=== PATIENT | female | born 1945 | race Caucasian/White ===

== ENCOUNTER 2022-09-15 20:27 | Emergency (ER) | payer MEDICARE, MEDICAID, SELFPAY ==
--- NOTE | 2022-09-15 20:27 | XRR_ITS ---
PROCEDURE INFORMATION: Exam: XR Abdomen Exam date and time: 09/15/2022 8:35 PM Age: 77 years old Clinical indication: Constipation TECHNIQUE: Imaging protocol: Radiologic exam of the abdomen. Views: Frontal supine view of the abdomen. 1 View. COMPARISON: No relevant prior studies available. FINDINGS: Gastrointestinal tract: Normal. No bowel dilation. Bones/joints: Lumbar spine levoscoliosis with a Dahl angle of 16 degrees measured between the superior endplate of L1 inferior endplate of L5. Multilevel severe disc space narrowing and productive degenerative endplate changes throughout the spine. XR/XR KUB [id number] IMPRESSION: 1. Lumbar spine levoscoliosis with a Dahl angle of 16 degrees measured between the superior endplate of L1 inferior endplate of L5. 2. Multilevel severe disc space narrowing and productive degenerative endplate changes throughout the spine.
[2022-09-15 20:44] VITALS: BP 116/63; PULSE 62; RESP 14; TEMP 36.7; O2SAT 97
--- NOTE | 2022-09-15 21:27 | CTR_ITS ---
PROCEDURE INFORMATION: Exam: CT Abdomen And Pelvis With Contrast Exam date and time: 09/15/2022 10:18 PM Age: 77 years old Clinical indication: Abdominal pain; Localized; Left lower quadrant (llq); Additional info: Llq abdominal pain, constipation TECHNIQUE: Imaging protocol: Computed tomography of the abdomen and pelvis with contrast. Radiation optimization: All CT scans at this facility use at least one of these dose optimization techniques: automated exposure control; mA and/or kV adjustment per patient size (includes targeted exams where dose is matched to clinical indication); or iterative reconstruction. Contrast material: OMNI 350; Contrast volume: 65 ml; Contrast route: INTRAVENOUS (IV); REPORTING DATA: Count of CT and Cardiac NM exams in prior 12 months: This patient has received 0 known CTs and 0 known cardiac nuclear medicine studies in the 12 months prior to the current study. COMPARISON: CR (ABDOMEN, ) 09/15/2022 8:35 PM RADIATION DOSE METRICS: Total DLP (mGy-cm): 495.64 FINDINGS: Lungs: Bibasilar atelectasis. Pleural spaces: Trace right pleural effusion. Heart: Cardiomegaly. Liver: Normal. No mass. Gallbladder and bile ducts: Gallbladder is somewhat distended, ultrasound could further evaluate this. Calcified biliary sludge. Pancreas: Normal. No ductal dilation. Spleen: Normal. No splenomegaly. Adrenal glands: Normal. No mass. Kidneys and ureters: Left kidney cyst, negative for follow-up advised. Stomach and bowel: Prominent fluid in the small bowel without dilation may reflect an enteritis in the appropriate clinical setting. [id number] constipation. Appendix: No evidence of appendicitis. Intraperitoneal space: Unremarkable. No free air. No significant fluid collection. Vasculature: Fusiform infrarenal abdominal aortic aneurysm measuring 2.7 cm in diameter. Lymph nodes: Unremarkable. No enlarged lymph nodes. Urinary bladder: Unremarkable as visualized. Reproductive: Unremarkable as visualized. Bones/joints: Degenerative changes throughout the spine. Soft tissues: Mild anasarca suspected. CT/CT abdomen pelvis w con* [id number] IMPRESSION: 1. Prominent fluid in the small bowel without dilation may reflect an enteritis in the appropriate clinical setting. 2. Fusiform infrarenal abdominal aortic aneurysm measuring 2.7 cm in diameter. 3. Left kidney cyst, negative for follow-up advised. 4. [id number] constipation. 5. Degenerative changes throughout the spine. 6. Trace right pleural effusion. 7. Bibasilar atelectasis. 8. Cardiomegaly. 9. Gallbladder is somewhat distended, ultrasound could further evaluate this. 10. Calcified biliary sludge. 11. Mild anasarca suspected. COMMENTS: Consistent with the [employer]'s Incidental Findings Committee white paper (J Am Denice Radiol 2018): Any incidental renal lesion less than 1 cm or classified as too small to characterize, or any incidental cystic renal lesion characterized as simple-appearing, is likely benign. No follow-up imaging is recommended for these lesions per consensus recommendations based on imaging criteria.
--- NOTE | 2022-09-15 21:29 | W.ED.ABDPA2 ---
Documented by User: ZEENAT Healy 09/16/22 02:16 HPI - Abdominal Pain General: Chief Complaint: Abdominal Pain Stated Complaint: CONSTIPATION Time Seen by Provider: 09/15/22 21:13 History of Present Illness: Patient is a 77-year-old female who comes to the ED with abdominal pain and constipation. 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 Patient is being taken care of by her sister and she lives with them currently. Sisters unsure of any other chronic health issues patient has and states that she very recently started taking care of patient. Over the past 2 to 3 days patient has been complaining of left lower quadrant abdominal pain. She also has went 4 days without having a bowel movement. She feels like she needs to have a bowel movement but is unable to push anything out. Patient was given stool softener for the past 2 days and started on MiraLAX today. Denies any fevers, nausea or vomiting and patient is able to keep p.o. food and fluids down. Location Director/sister does endorse a decreased appetite that is been going on now for the past several months. Denies any abdominal surgical history. Patient is on Eliquis and Plavix. Associated Symptoms: Reports constipation; Denies chills, diarrhea, dysuria, fever(s), hematochezia, hematuria, nausea and vomiting Review of Systems Const: Denies: fever(s), chills or fatigue Eyes: Denies: change in vision or eye discomfort ENMT: Denies: throat pain, odynophagia, nasal discharge or nasal congestion Card: Denies: chest pain, palpitations, edema, swelling of feet/ankles, dyspnea on exertion or orthopnea Resp: Denies: dyspnea, productive cough or non-productive cough GI: Reports: abdominal pain and constipation; Denies: nausea, vomiting, diarrhea or hematochezia : Denies: flank pain, dysuria or hematuria Musc: Denies: neck pain, back pain or extremity swelling Skin/Breast: Denies: rash or new lesions Neuro: Denies: headache(s), numbness in extremities or weakness in extremities [facility] ED PFSH: Medical History (Updated 09/24/22 @ 00:02 by CHINO Smith) Dementia Stroke Surgical History (Updated 09/15/22 @ 21:38 by ZEENAT Healy) No pertinent past surgical history Physical Exam Const: COMMON NORMALS: alert EXAM LIMITATIONS: altered mental status (Patient has dementia) HENMT: COMMON NORMALS: normocephalic HEAD & SCALP: normocephalic MOUTH: Normal oral and palatal mucosa present THROAT: posterior oropharynx normal and uvula midline Neck/C-Spine: COMMON NORMALS: supple GENERAL: Yes normal visual inspection Resp: COMMON NORMALS: normal respiratory effort, No retractions, No use of accessory muscles and clear to auscultation bilaterally AUSCULTATION: clear to auscultation bilaterally Cardio: COMMON NORMALS: regular rate, regular rhythm, S1 normal heart sound present, S2 normal heart sound present, No gallops present (Cardio), No clicks present (Cardio), No murmurs present (Cardio) and Peripheral pulses 2+ throughout RATE: regular rate RHYTHM: regular rhythm HEART SOUNDS: S1 normal heart sound present and S2 normal heart sound present PERIPHERAL PULSES: Peripheral pulses 2+ throughout GI: COMMON NORMALS: Normal to inspection, nondistended, normoactive bowel sounds present, Soft to palpation and no masses PALPATION: Yes Soft to palpation and Yes Tenderness to palpation present (GI) Details: LLQ OTHER: Patient has firm palpable mass in the left lower quadrant of abdomen. : COMMON NORMALS: Yes no CVA tenderness BLADDER/KIDNEY EXAM: Yes no CVA tenderness Back/Pelvis: COMMON NORMALS: no CVA tenderness Extremity: COMMON NORMALS: normal to inspection Neuro: SENSORIUM/ORIENTATION: Yes alert GAIT: Yes Normal gait present Skin: GENERAL SKIN EXAM: dry skin Course Reevaluation(s): Reevaluation #1: I went in to discuss CT findings with patient and patient's sister stated that within the last half an hour patient was complaining of some chest pain in the middle of her chest. She described as a tight pain in the middle of her chest. She states that the chest pain has resolved at this time and only lasted for few minutes. I told patient and patient's sister that we will do some further cardiac testing here in the ED for further evaluation. Time: 23:30 Vital Signs: Vital signs: Vital Signs Temperature 98.0 F 09/15/22 20:44 Pulse Rate 62 09/16/22 01:16 Respiratory Rate 16 09/16/22 01:16 Blood Pressure 132/58 09/16/22 01:16 Pulse Oximetry 95 09/16/22 01:16 Oxygen Delivery Me thod Room Air 09/16/22 00:00 MDM - Abdominal Pain Medical Decision Making Patient is a 77-year-old female who comes to the ED with abdominal pain and constipation. 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 Patient is being taken care of by her sister and she lives with them currently. Sisters unsure of any other chronic health issues patient has and states that she very recently started taking care of patient. Over the past 2 to 3 days patient has been complaining of left lower quadrant abdominal pain. She also has went 4 days without having a bowel movement. She feels like she needs to have a bowel movement but is unable to push anything out. Patient was given stool softener for the past 2 days and started on MiraLAX today. Denies any fevers, nausea or vomiting and patient is able to keep p.o. food and fluids down. Location Director/sister does endorse a decreased appetite that is been going on now for the past several months. Denies any abdominal surgical history. Patient is on Eliquis and Plavix. Vitals are stable. Patient has some mild left lower quadrant abdominal tenderness with also small palpable mass in the left lower quadrant of the abdomen. Rest of exam is benign. Hemoglobin 8.2 and creatinine was 1.2. Rest of CBC and CMP are unremarkable. UA was unremarkable. Patient developed a brief episode of chest pain while here in the ED that resolved after few minutes so EKG and troponins ordered. EKG showed no acute findings and troponins were negative. KUB showed no acute findings. CT of abdomen pelvis showed enteritis of the small bowel and also showed mild to moderate constipation. I discussed patient case with Dr. Oro and he agreed patient was stable for discharge home. She was diagnosed with constipation, abdominal pain, anemia and atypical chest pain. Patient's sister was told to have patient follow-up with her PCP within the next couple days to have her labs rechecked. She was instructed to continue giving patient a dose of MiraLAX daily for the next 3 days to help with constipation. Strict return to ED precautions given. Patient's sister understood and agreed with plan. Lab Data I reviewed the patient's lab results. 09/15/22 21:37 09/15/22 21:37 Labs/Radiology: Radiology Impressions KUB X-Ray 09/15/22 20:27 IMPRESSION: 1. Lumbar spine levoscoliosis with a Dahl angle of 16 degrees measured between the superior endplate of L1 inferior endplate of L5. 2. Multilevel severe disc space narrowing and productive degenerative endplate changes throughout the spine. Abdomen/Pelvis CT 09/15/22 21:27 IMPRESSION: 1. Prominent fluid in the small bowel without dilation may reflect an enteritis in the appropriate clinical setting. 2. Fusiform infrarenal abdominal aortic aneurysm measuring 2.7 cm in diameter. 3. Left kidney cyst, negative for follow-up advised. 4. Eyqe-qz-khiykoux constipation. 5. Degenerative changes throughout the spine. 6. Trace right pleural effusion. 7. Bibasilar atelectasis. 8. Cardiomegaly. 9. Gallbladder is somewhat distended, ultrasound could further evaluate this. 10. Calcified biliary sludge. 11. Mild anasarca suspected. COMMENTS: Consistent with the [employer]'s Incidental Findings Committee white paper (J Am Denice Radiol 2018): Any incidental renal lesion less than 1 cm or classified as too small to characterize, or any incidental cystic renal lesion characterized as simple-appearing, is likely benign. No follow-up imaging is recommended for these lesions per consensus recommendations based on imaging criteria. Laboratory Results WBC 6.9 10^3/uL (4.0-10.0) 09/15/22 21:37 RBC 3.23 10^6/uL (4.1-5.3) L 09/15/22 21:37 Hgb 8.2 g/dL (11.5-15.3) L 09/15/22 21:37 Hct 28.5 % (37.0-47.0) L 09/15/22 21:37 MCV 88.2 fl (81-99) 09/15/22 21:37 MCH 25.4 pg (28.0-34.0) L 09/15/22 21:37 MCHC 28.8 g/dL (30.0-36.0) L 09/15/22 21:37 RDW 18.6 % (12.1-15.1) H 09/15/22 21:37 Plt Count 192 10^3/cmm (130-400) 09/15/22 21:37 MPV 10.9 fL (7.4-10.4) H 09/15/22 21:37 Neut % (Auto) 71.3 % 09/15/22 21:37 Lymph % (Auto) 18.0 % 09/15/22 21:37 [place] % (Auto) 7.5 % 09/15/22 21:37 Eos % (Auto) 2.3 % 09/15/22 21:37 Baso % (Auto) 0.6 % 09/15/22 21:37 Neut # (Auto) 4.94 10^3/uL (1.8-7.7) 09/15/22 21:37 Lymph # (Auto) 1.3 10^3/uL (0.8-4.8) 09/15/22 21:37 [place] # (Auto) 0.5 10^3/uL (0.2-0.9) 09/15/22 21:37 Eos # (Auto) 0.2 10^3/uL (0.0-0.8) 09/15/22 21:37 Baso # (Auto) 0.0 10^3/uL (0.0-0.1) 09/15/22 21:37 Nucleated RBC % (auto) 0 % 09/15/22 21:37 Nucleated RBCs # 0.0 /100WBC 09/15/22 21:37 PT 18.00 SECONDS (12.1-14.9) H 09/15/22 21:37 INR 1.44 (0.8-1.2) H 09/15/22 21:37 APTT 30.2 SECONDS (23.9-36.7) 09/15/22 21:37 Sodium 141 mmol/L (136-145) 09/15/22 21:37 Potassium 4.3 mmol/L (3.5-5.1) 09/15/22 21:37 Chloride 106 mmol/L (98-107) 09/15/22 21:37 Carbon Dioxide 23 mmol/L (22-29) 09/15/22 21:37 Anion Gap 16.3 (5-19) 09/15/22 21:37 BUN 20 mg/dL (8-23) 09/15/22 21:37 Creatinine 1.2 mg/dL (0.5-0.9) H 09/15/22 21:37 GFR Calculation Not Reportable 09/15/22 21:37 Glucose 107 mg/dL (65-115) 09/15/22 21:37 Calculated Osmolality 295 mOsm/kg (285-295) 09/15/22 21:37 Calcium 9.0 mg/dL (8.5-10.5) 09/15/22 21:37 Total Bilirubin 0.3 mg/dL (0.15-1.2) 09/15/22 21:37 AST 19 U/L (0-32) 09/15/22 21:37 ALT 9 U/L (0-33) 09/15/22 21:37 Alkaline Phosphatase 74 U/L (35-105) 09/15/22 21:37 Troponin T Baseline 36 ng/L (0-10) H 09/15/22 21:37 Troponin T 120 Minute 30.58 ng/L (0-10) H 09/16/22 00:03 Delta Troponin T -5.42 ABS# (0-10) L 09/16/22 00:03 Total Protein 6.1 g/dL (6.6-8.7) L 09/15/22 21:37 Albumin 3.5 g/dL (3.5-5.2) 09/15/22 21:37 Globulin 2.6 g/dL (1.3-4.6) 09/15/22 21:37 Lipase 23 U/L (13-60) 09/15/22 21:37 Urine Color Yellow (Yellow) 09/15/22 23:00 Urine Appearance Hazy (CLEAR) A 09/15/22 23:00 Urine pH 5 (5-7) 09/15/22 23:00 Ur Specific [place] 1.015 (1.005-1.030) 09/15/22 23:00 Urine Protein 1+ (Negative) H 09/15/22 23:00 Urine Glucose (UA) 4+ (Normal) H 09/15/22 23:00 Urine Ketones Negative (Negative) 09/15/22 23:00 Urine Blood Neg (Negative) 09/15/22 23:00 Urine Nitrate Negative (Negative) 09/15/22 23:00 Urine Bilirubin Neg (Negative) 09/15/22 23:00 Urine Urobilinogen Neg mg/dL (Negative) 09/15/22 23:00 Ur Leukocyte Esterase 1+ (Negative) H 09/15/22 23:00 Urine RBC 0-4 /hpf (0-2) H 09/15/22 23:00 Urine WBC 5-10 /hpf (0-5) H 09/15/22 23:00 Ur Squamous Epith Cells 0-4 /hpf (0-5) H 09/15/22 23:00 Amorphous Sediment Not Reportable 09/15/22 23:00 Urine Bacteria 3+ /hpf (NONE) H 09/15/22 23:00 Urine Mucus 2+ /hpf 09/15/22 23:00 Urine Yeast 4+ /hpf H 09/15/22 23:00 EKG Data EKG 1: EKG interpretation date: 09/16/22 Interpretation: Sinus rhythm, 61 bpm, no ST segment elevation or depression seen. I had Dr. Oro review patient's EKG and he agreed no acute NH seen. Discharge Plan Discharge Patient Disposition: Home Clinical Impression: Constipation, Abdominal pain, Anemia, Atypical chest pain Condition: Stable Discharge Orders: Discharge ED (Routine); Ordered 09/16/22 Ordered By: Srinath Akins Discharge Diet: Advance as tolerated Discharge Activity: Increase activity as tolerated Patient Instructions: Constipation (DC), Anemia (ED) Activity Restrictions/Additional Instructions: Follow-up with medical provider as directed in the next 2 to 3 days for reevaluation and to have hemoglobin levels rechecked. Take medications as prescribed. Make sure patient drinks plenty of fluids and stays hydrated. Continue giving MiraLAX daily for the next 3 days. Return to the ER or your medical provider if condition worsens. Please read and understand discharge instructions. Thank you for choosing [facility] for your healthcare needs today. Please realize this is an emergency room and that we are providing you with a medical screening exam and this may not be complete and all inclusive of all the testing and or work up that you may need to determine your ailment or severity of your illness. It is very important that you follow up as instructed or that you return to the Emergency Department should you have concerns or if your condition changes or worsens in any way. Coding Level of Care Code ED Electrical Line Mechanic for Chg Fwd Documented by User: Guicho Oro MD 09/28/22 04:51 HPI - Abdominal Pain General: Chief Complaint: Abdominal Pain Stated Complaint: CONSTIPATION Time Seen by Provider: 09/15/22 21:13 [facility] ED PFSH: Medical History (Updated 09/24/22 @ 00:02 by CHINO Smith) Dementia Stroke Surgical History (Updated 09/15/22 @ 21:38 by ZEENAT Healy) No pertinent past surgical history Course Vital Signs: Vital signs: Vital Signs Temperature 98.0 F 09/15/22 20:44 Pulse Rate 62 09/16/22 01:16 Respiratory Rate 16 09/16/22 01:16 Blood Pressure 132/58 09/16/22 01:16 Pulse Oximetry 95 09/16/22 01:16 Oxygen Delivery Me thod Room Air 09/16/22 00:00 MDM - Abdominal Pain Medical Decision Making Patient is a 77-year-old female who comes to the ED with abdominal pain and constipation. 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 Patient is being taken care of by her sister and she lives with them currently. Sisters unsure of any other chronic health issues patient has and states that she very recently started taking care of patient. Over the past 2 to 3 days patient has been complaining of left lower quadrant abdominal pain. She also has went 4 days without having a bowel movement. She feels like she needs to have a bowel movement but is unable to push anything out. Patient was given stool softener for the past 2 days and started on MiraLAX today. Denies any fevers, nausea or vomiting and patient is able to keep p.o. food and fluids down. Location Director/sister does endorse a decreased appetite that is been going on now for the past several months. Denies any abdominal surgical history. Patient is on Eliquis and Plavix. Vitals are stable. Patient has some mild left lower quadrant abdominal tenderness with also small palpable mass in the left lower quadrant of the abdomen. Rest of exam is benign. Hemoglobin 8.2 and creatinine was 1.2. Rest of CBC and CMP are unremarkable. UA was unremarkable. Patient developed a brief episode of chest pain while here in the ED that resolved after few minutes so EKG and troponins ordered. EKG showed no acute findings and troponins were negative. KUB showed no acute findings. CT of abdomen pelvis showed enteritis of the small bowel and also showed mild to moderate constipation. I discussed patient case with Dr. Oro and he agreed patient was stable for discharge home. She was diagnosed with constipation, abdominal pain, anemia and atypical chest pain. Patient's sister was told to have patient follow-up with her PCP within the next couple days to have her labs rechecked. She was instructed to continue giving patient a dose of MiraLAX daily for the next 3 days to help with constipation. Strict return to ED precautions given. Patient's sister understood and agreed with plan. I discussed this case with ZEENAT Healy. I reviewed documentation, labs, imaging. Guicho Oro MD Emergency medicine Lab Data 09/15/22 21:37 09/15/22 21:37 Labs/Radiology: Radiology Impressions KUB X-Ray 09/15/22 20:27 IMPRESSION: 1. Lumbar spine levoscoliosis with a Dahl angle of 16 degrees measured between the superior endplate of L1 inferior endplate of L5. 2. Multilevel severe disc space narrowing and productive degenerative endplate changes throughout the spine. Abdomen/Pelvis CT 09/15/22 21:27 IMPRESSION: 1. Prominent fluid in the small bowel without dilation may reflect an enteritis in the appropriate clinical setting. 2. Fusiform infrarenal abdominal aortic aneurysm measuring 2.7 cm in diameter. 3. Left kidney cyst, negative for follow-up advised. 4. Xzez-ki-ojnkgfgp constipation. 5. Degenerative changes throughout the spine. 6. Trace right pleural effusion. 7. Bibasilar atelectasis. 8. Cardiomegaly. 9. Gallbladder is somewhat distended, ultrasound could further evaluate this. 10. Calcified biliary sludge. 11. Mild anasarca suspected. COMMENTS: Consistent with the [employer]'s Incidental Findings Committee white paper (J Am Denice Radiol 2018): Any incidental renal lesion less than 1 cm or classified as too small to characterize, or any incidental cystic renal lesion characterized as simple-appearing, is likely benign. No follow-up imaging is recommended for these lesions per consensus recommendations based on imaging criteria. Laboratory Results WBC 6.9 10^3/uL (4.0-10.0) 09/15/22 21:37 RBC 3.23 10^6/uL (4.1-5.3) L 09/15/22 21:37 Hgb 8.2 g/dL (11.5-15.3) L 09/15/22 21:37 Hct 28.5 % (37.0-47.0) L 09/15/22 21:37 MCV 88.2 fl (81-99) 09/15/22 21:37 MCH 25.4 pg (28.0-34.0) L 09/15/22 21:37 MCHC 28.8 g/dL (30.0-36.0) L 09/15/22 21:37 RDW 18.6 % (12.1-15.1) H 09/15/22 21:37 Plt Count 192 10^3/cmm (130-400) 09/15/22 21:37 MPV 10.9 fL (7.4-10.4) H 09/15/22 21:37 Neut % (Auto) 71.3 % 09/15/22 21:37 Lymph % (Auto) 18.0 % 09/15/22 21:37 [place] % (Auto) 7.5 % 09/15/22 21:37 Eos % (Auto) 2.3 % 09/15/22 21:37 Baso % (Auto) 0.6 % 09/15/22 21:37 Neut # (Auto) 4.94 10^3/uL (1.8-7.7) 09/15/22 21:37 Lymph # (Auto) 1.3 10^3/uL (0.8-4.8) 09/15/22 21:37 [place] # (Auto) 0.5 10^3/uL (0.2-0.9) 09/15/22 21:37 Eos # (Auto) 0.2 10^3/uL (0.0-0.8) 09/15/22 21:37 Baso # (Auto) 0.0 10^3/uL (0.0-0.1) 09/15/22 21:37 Nucleated RBC % (auto) 0 % 09/15/22 21:37 Nucleated RBCs # 0.0 /100WBC 09/15/22 21:37 PT 18.00 SECONDS (12.1-14.9) H 09/15/22 21:37 INR 1.44 (0.8-1.2) H 09/15/22 21:37 APTT 30.2 SECONDS (23.9-36.7) 09/15/22 21:37 Sodium 141 mmol/L (136-145) 09/15/22 21:37 Potassium 4.3 mmol/L (3.5-5.1) 09/15/22 21:37 Chloride 106 mmol/L (98-107) 09/15/22 21:37 Carbon Dioxide 23 mmol/L (22-29) 09/15/22 21:37 Anion Gap 16.3 (5-19) 09/15/22 21:37 BUN 20 mg/dL (8-23) 09/15/22 21:37 Creatinine 1.2 mg/dL (0.5-0.9) H 09/15/22 21:37 GFR Calculation Not Reportable 09/15/22 21:37 Glucose 107 mg/dL (65-115) 09/15/22 21:37 Calculated Osmolality 295 mOsm/kg (285-295) 09/15/22 21:37 Calcium 9.0 mg/dL (8.5-10.5) 09/15/22 21:37 Total Bilirubin 0.3 mg/dL (0.15-1.2) 09/15/22 21:37 AST 19 U/L (0-32) 09/15/22 21:37 ALT 9 U/L (0-33) 09/15/22 21:37 Alkaline Phosphatase 74 U/L (35-105) 09/15/22 21:37 Troponin T Baseline 36 ng/L (0-10) H 09/15/22 21:37 Troponin T 120 Minute 30.58 ng/L (0-10) H 09/16/22 00:03 Delta Troponin T -5.42 ABS# (0-10) L 09/16/22 00:03 Total Protein 6.1 g/dL (6.6-8.7) L 09/15/22 21:37 Albumin 3.5 g/dL (3.5-5.2) 09/15/22 21:37 Globulin 2.6 g/dL (1.3-4.6) 09/15/22 21:37 Lipase 23 U/L (13-60) 09/15/22 21:37 Urine Color Yellow (Yellow) 09/15/22 23:00 Urine Appearance Hazy (CLEAR) A 09/15/22 23:00 Urine pH 5 (5-7) 09/15/22 23:00 Ur Specific [place] 1.015 (1.005-1.030) 09/15/22 23:00 Urine Protein 1+ (Negative) H 09/15/22 23:00 Urine Glucose (UA) 4+ (Normal) H 09/15/22 23:00 Urine Ketones Negative (Negative) 09/15/22 23:00 Urine Blood Neg (Negative) 09/15/22 23:00 Urine Nitrate Negative (Negative) 09/15/22 23:00 Urine Bilirubin Neg (Negative) 09/15/22 23:00 Urine Urobilinogen Neg mg/dL (Negative) 09/15/22 23:00 Ur Leukocyte Esterase 1+ (Negative) H 09/15/22 23:00 Urine RBC 0-4 /hpf (0-2) H 09/15/22 23:00 Urine WBC 5-10 /hpf (0-5) H 09/15/22 23:00 Ur Squamous Epith Cells 0-4 /hpf (0-5) H 09/15/22 23:00 Amorphous Sediment Not Reportable 09/15/22 23:00 Urine Bacteria 3+ /hpf (NONE) H 09/15/22 23:00 Urine Mucus 2+ /hpf 09/15/22 23:00 Urine Yeast 4+ /hpf H 09/15/22 23:00 Discharge Plan Discharge Patient Disposition: Home Clinical Impression: Constipation, Abdominal pain, Anemia, Atypical chest pain Condition: Stable Discharge Orders: Discharge ED (Routine); Ordered 09/16/22 Ordered By: Srinath Akins Discharge Diet: Advance as tolerated Discharge Activity: Increase activity as tolerated Patient Instructions: Constipation (DC), Anemia (ED) Activity Restrictions/Additional Instructions: Follow-up with medical provider as directed in the next 2 to 3 days for reevaluation and to have hemoglobin levels rechecked. Take medications as prescribed. Make sure patient drinks plenty of fluids and stays hydrated. Continue giving MiraLAX daily for the next 3 days. Return to the ER or your medical provider if condition worsens. Please read and understand discharge instructions. Thank you for choosing [facility] for your healthcare needs today. Please realize this is an emergency room and that we are providing you with a medical screening exam and this may not be complete and all inclusive of all the testing and or work up that you may need to determine your ailment or severity of your illness. It is very important that you follow up as instructed or that you return to the Emergency Department should you have concerns or if your condition changes or worsens in any way. Coding Level of Care Code ED Electrical Line Mechanic for Mee Mendoza
[2022-09-15 21:48] LABS: Basophils % 0.6 %; Eosinophils # 0.2 10^3/uL (0.0-0.8); Eosinophils % 2.3 %; Hematocrit 28.5 % (37.0-47.0); Hemoglobin 8.2 g/dL (11.5-15.3); Lymphocytes # 1.3 10^3/uL (0.8-4.8); Mean Corpuscular HGB Conc 28.8 g/dL (30.0-36.0); Mean Corpuscular Hemoglobin 25.4 pg (28.0-34.0); Mean Corpuscular Volume 88.2 fl (81-99); Mean Platelet Volume 10.9 fL (7.4-10.4); Monocytes # 0.5 10^3/uL (0.2-0.9); Monocytes % 7.5 %; Neutrophils # 4.94 10^3/uL (1.8-7.7); Neutrophils % 71.3 %; Nucleated Red Blood Cells % 0 %; Platelet Count 192 10^3/cmm (130-400); Red Blood Count 3.23 10^6/uL (4.1-5.3); Red Cell Distribution Width 18.6 % (12.1-15.1); White Blood Count 6.9 10^3/uL (4.0-10.0)
[2022-09-15 22:07] LABS: Alanine Aminotransferase 9 U/L (0-33); Albumin Level 3.5 g/dL (3.5-5.2); Alkaline Phosphatase 74 U/L (35-105); Anion Gap 16.3 (5-19); Aspartate Amino Transferase 19 U/L (0-32); Blood Urea Nitrogen 20 mg/dL (8-23); Carbon Dioxide 23 mmol/L (22-29); Chloride 106 mmol/L (98-107); Globulin 2.6 g/dL (1.3-4.6); Glucose 107 mg/dL (65-115); Lipase 23 U/L (13-60); Osmolality Calculated 295 mOsm/kg (285-295); Potassium 4.3 mmol/L (3.5-5.1); Sodium 141 mmol/L (136-145); Total Bilirubin 0.3 mg/dL (0.15-1.2); Total Protein 6.1 g/dL (6.6-8.7)
[2022-09-15 22:12] LABS: INR 1.44 (0.8-1.2)
[2022-09-15 22:13] LABS: Partial Thromboplastin Time 30.2 SECONDS (23.9-36.7)
[2022-09-15] MEDS: iohexol 350 mg/mL 500 mL Btl (per mL) IV (22:21)
[2022-09-15] MEDS: sodium chloride 0.9% 500 ML 999 ML IV (22:38)
[2022-09-15 22:47] VITALS: BP 128/61; PULSE 63; RESP 17; O2SAT 96
[2022-09-15 23:16] LABS: Add Urine Microscopic? YES; Bilirubin Urine Neg (Negative); Blood Urine Neg (Negative); Glucose Urine UA 4+ (Normal); Ketones Urine Negative (Negative); Leukocyte Esterase Urine 1+ (Negative); Nitrate Urine Negative (Negative); Protein Urine 1+ (Negative); Specific Gravity, Urine 1.015 (1.005-1.030); Urine Appearance Hazy (CLEAR); Urine Color Yellow (Yellow); Urobilinogen Urine Neg (Negative); pH Urine 5 (5-7)
[2022-09-15 23:18] LABS: Bacteria Urine 3+ /hpf; Mucus Urine 2+ /hpf; RBC Urine 0-4 /hpf (0-2); Squamous Epithelial Cell Urine 0-4 /hpf (0-5)
[2022-09-15 23:19] LABS: Add Urine Culture? Yes
--- NOTE | 2022-09-15 23:30 | PC.NURSE ---
pt on bedside athletic monitor
--- NOTE | 2022-09-15 23:47 | ECG_ITS ---
[facility] Test Date: 2022-09-16 Pat Name: Jamal Means Department: Room: Gender: Female Marking Machine Tender: : 1945 Requested By: Srinath Akins Order Number: [id number] Santana MD: Shoshana Pichardo M.D. Measurements Intervals [place] Rate: 61 P: 22 IA: 137 QRS: -7 QRSD: 88 T: 228 QT: 411 QTc: 416 Interpretive Statements SINUS RHYTHM ANTERIOR MYOCARDIAL INFARCTION , PROBABLY RECENT [40+ ms Q WAVE AND/OR ST/T ABNORMALITY IN V3/V4] ACUTE MO No previous ECG available for comparison Electronically Signed On 09-16-2022 11:02:32 CDT by Shoshana Pichardo M.D. [email or web address]
[2022-09-16] VITALS: BP 132/58; PULSE 59; RESP 14; O2SAT 95
[2022-09-16 00:07] LABS: Troponin(5th) Baseline 36 ng/L (0-10)
[2022-09-16 00:26] LABS: Troponin 5 2HR 30.58 ng/L (0-10)
[2022-09-16 00:30] LABS: Troponin 5 2HR Delta -5.42 ABS# (0-10)
[2022-09-16 01:16] VITALS: BP 132/58; PULSE 62; RESP 16; O2SAT 95
== END 2022-09-16 01:17 | disposition home or self-care (01) ==
PROVIDERS: Emergency Provider Physician Assistant
DX: K59.01 Slow transit constipation (principal); R07.89 Other chest pain; D64.9 Anemia, unspecified; F03.90 Unspecified dementia, unspecified severity, without behavioral disturbance, psychotic disturbance, mood disturbance, and anxiety; Z86.73 Personal history of transient ischemic attack (TIA), and cerebral infarction without residual deficits
CPT/HCPCS: 36415; 74018; 74177; 80053; 81001; 83690; 84484; 85025; 85610; 85730; 87086; 93005; 99285; J7040; Q9967